=== PATIENT | male | born 1965 | race Hispanic/Latino ===

== ENCOUNTER 2018-07-14 06:54 | Emergency (ER) | payer MEDICARE, MEDICAID ==
[2018-07-14 07:32] LABS: #Basophils 0.1 thou/uL (0.0-0.2); #Eosinphils 0.2 thou/uL (0.0-0.7); #Lymphocytes 1.8 thou/uL (1.20-3.40); #Monocytes 0.6 thou/uL (0.11-0.59); #Neutrophils 2.5 thou/uL (1.40-6.50); %Basophils 1.3 % (0.0-1.0); %Eosinophils 3.5 % (0.0-10.0); %Lymphocytes 35.5 % (21.0-51.0); %Neutrophils 48.7 % (42.0-75.0); Hemoglobin 15.6 g/dL (14.0-18.0); Mean Corpuscular HGB CONC 34.1 g/dL (32.0-36.0); Mean Corpuscular Hemoglobin 30.3 pg (27.0-31.0); Mean Corpuscular Volume 88.8 fL (78.0-98.0); Mean Platelet Volume 7.1 fL (7.4-10.4); Platelet Count 239 thou/uL (130-400); RBC Distribution Width 12.6 % (11.5-14.5); Red Blood Cell (RBC) Count 5.13 mill/uL (4.70-6.10)
[2018-07-14 07:52] LABS: ALT (SGPT) 11 U/L (8-55); AST (SGOT) 16 U/L (5-34); Albumin 4.5 g/dL (3.5-5.0); Alkaline Phosphatase 113 U/L (40-150); Anion Gap 14 mmol/L (10-20); BUN (Urea Nitrogen) 16 mg/dL (8.9-20.6); Bilirubin, Total 0.7 mg/dL (0.2-1.2); Calc. Creatinine Clearance 0 mL/min (70-130); Calcium 9.3 mg/dL (7.8-10.44); Carbon Dioxide 24 mmol/L (22-29); Chloride 103 mmol/L (98-107); Estimated GFR-MDRD 75; Globulin 3.2 g/dL (2.4-3.5); Glucose 249 mg/dL (70-105); Potassium 3.9 mmol/L (3.5-5.1); Protein, Total 7.7 g/dL (6.0-8.3); Sodium 137 mmol/L (136-145)
[2018-07-14 07:57] LABS: CKMB 1.9 ng/mL (0-6.6)
[2018-07-14] MEDS ORDERED: Meclizine HCl 25 MG TAB ONE (08:05)
--- NOTE | 2018-07-14 08:06 | RAD ---
CHEST 1 VIEW: HISTORY: Dyspnea. COMPARISON: 12/30/14. FINDINGS: Cardiac silhouette is magnified by projection. Pulmonary vasculature is slightly engorged. Mediasti num midline with postoperative changes and aortic calcification. No lobar consolidation or evidence of pneumothorax. Lateral costophrenic angles are excluded from the image. IMPRESSION: Borderline pulmonary vascular congestion. POS: [facility]
--- NOTE | 2018-07-14 10:50 | CT ---
CT HEAD NONCONTRAST: Date: 07/14/18 HISTORY: Dizziness. Altered mental status. COMPARISON: 10/03/16. FINDINGS: There is no evidence of acute intracranial hemorrhage or infarct. Ventricles appear normal in size, s hape, and position. There is no mass effect or shift of midline structures. Visualized paranasal sinu ses remain well aerated. IMPRESSION: No acute intracranial abnormalities are demonstrated. POS: [facility]
[2018-07-14] MEDS ORDERED: Diazepam 5 MG TAB ONE (11:17)
--- NOTE | 2018-07-14 12:50 | MRI ---
MRI WITHOUT CONTRAST: HISTORY: Dizziness. Evaluate for possible stroke. COMPARISON: None. TECHNIQUE: MRI of the brain is performed without intravenous Gadolinium administration. Multisequential, multip lanar imaging is performed. FINDINGS: Calvarium has a normal T1 marrow signal intensity. Midline brain parenchymal structures are unremark able. Minimal T2 and FLAIR white matter hyperintensities are nonspecific. No parenchymal mass, mass effect, or midline shift. Basilar cisterns are patent. Brain volume is ag e appropriate. Cortical clark-white matter differentiation is preserved. No evidence of hydrocephalus. Central arterial flow voids are maintained. Absence of restricted diffusion. Mucous retention cyst in the left maxillary sinus. Mild bilateral ethmoidal mucosal thickening. Not e is made of a partially empty sella. IMPRESSION: 1. Absent restricted diffusion. No acute infarct. 2. Minimal white matter hyperintensities on the axial FLAIR sequence are nonspecific but may be due to chronic small-vessel ischemic changes. POS: [facility]
== END 2018-07-14 13:18 | disposition home or self-care (01) ==
LOC: ERS 06:54
DX: R42 Dizziness and giddiness (principal); E11.9 Type 2 diabetes mellitus without complications; E78.5 Hyperlipidemia, unspecified; I25.10 Atherosclerotic heart disease of native coronary artery without angina pectoris; I10 Essential (primary) hypertension; Z79.891 Long term (current) use of opiate analgesic; Z79.899 Other long term (current) drug therapy
CPT/HCPCS: 36415; 70450; 70551; 71045; 80053; 82553; 84484; 85025; 93005

== ENCOUNTER 2019-03-20 15:50 | Observation (INO) | payer MEDICARE, MEDICAID ==
[2019-03-20] MEDS ORDERED: Senokot S 8.6-50 MG TAB PO PRN (17:54)
[2019-03-20] MEDS ORDERED: Dextrose 5% in Water 1,000 ML IV PRN (18:08)
[2019-03-20] MEDS ORDERED: Dextrose 50% Abboject 50 ML SYRINGE SLOW IVP PRN (18:08)
[2019-03-20 19:18] VITALS: BMI 26.4
[2019-03-20 19:49] LABS: Troponin I 0.018 ng/mL (< 0.028)
[2019-03-20] MEDS: Acetaminophen 325 MG TAB PO PRN (21:17)
[2019-03-20] MEDS: Famotidine 20 MG TAB PO SCH (21:18)
[2019-03-20] MEDS: HumaLOG 300 UNITS/3 ML VIAL SC SCH (21:19)
[2019-03-20 22:41] LABS: Troponin I 0.017 ng/mL (< 0.028)
[2019-03-21] MEDS: Acetaminophen 325 MG TAB PO PRN (03:41)
[2019-03-21 05:35] LABS: #Basophils 0.1 thou/uL (0.0-0.2); #Eosinphils 0.2 thou/uL (0.0-0.7); #Lymphocytes 2.3 thou/uL (1.20-3.40); #Monocytes 0.9 thou/uL (0.11-0.59); #Neutrophils 4.1 thou/uL (1.40-6.50); %Basophils 1.5 % (0.0-1.0); %Eosinophils 2.5 % (0.0-10.0); %Lymphocytes 30.4 % (21.0-51.0); %Monocytes 11.7 % (0.0-10.0); %Neutrophils 53.8 % (42.0-75.0); Mean Corpuscular HGB CONC 32.4 g/dL (32.0-36.0); Mean Corpuscular Hemoglobin 29.1 pg (27.0-31.0); Mean Corpuscular Volume 89.8 fL (78.0-98.0); Mean Platelet Volume 7.4 fL (7.4-10.4); Platelet Count 231 thou/uL (130-400); RBC Distribution Width 12.9 % (11.5-14.5); Red Blood Cell (RBC) Count 5.15 mill/uL (4.70-6.10); White Blood Cell (WBC) Count 7.5 thou/uL (4.8-10.8)
[2019-03-21 05:58] LABS: ALT (SGPT) 8 U/L (8-55); AST (SGOT) 14 U/L (5-34); Alkaline Phosphatase 81 U/L (40-150); Anion Gap 13 mmol/L (10-20); BUN (Urea Nitrogen) 17 mg/dL (8.4-25.7); Bilirubin, Total 0.7 mg/dL (0.2-1.2); Calc. Creatinine Clearance 93 mL/min (70-130); Calcium 9.4 mg/dL (7.8-10.44); Carbon Dioxide 27 mmol/L (22-29); Cardiac Risk 4.4 (Less than 4.5); Chloride 100 mmol/L (98-107); Cholesterol 224 mg/dl (< 200 Desired); Estimated GFR-MDRD 68; Globulin 3.2 g/dL (2.4-3.5); Glucose 178 mg/dL (70-105); HDL Cholesterol 51 mg/dL (>60 Neg Risk); LDL Cholesterol, Calculated 135 mg/dL; Potassium 3.8 mmol/L (3.5-5.1); Protein, Total 7.2 g/dL (6.0-8.3); Sodium 136 mmol/L (136-145); Triglycerides 191 mg/dL (Less than 150)
[2019-03-21 06:13] LABS: Free T4 (Free Thyroxine) 0.86 ng/dL (0.70-1.48); Thyroid Stimulating Hormone 16.7808 uIU/mL (0.35-4.94)
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
[2019-03-21] MEDS ORDERED: Enoxaparin Sodium 40 MG/0.4 ML SYRINGE SC SCH (09:00)
--- NOTE | 2019-03-21 10:15 | NM ---
EXAM: CARDIAC SPECT HISTORY: Chest pain, coronary disease, status post CABG, hypertension, dyslipidemia, smoker TECHNIQUE: A myocardial perfusion scan was performed using the single isotope 1 day protocol with little hnetium 99m sestamibi. [11 mCi] was injected intravenously for the rest exam followed by 33 mCifor the stress study. Pharmacologic stress with Lexiscan was monitored and interpreted by Pedro Hurst, nurse practitioner. FINDINGS: There is homogeneous tracer distribution in the myocardial segments on the rest images. The stress images demonstrate a moderate-sized defect in the inferolateral wall. Gated SPECT LVEF: 61% Wall motion exam: Normal IMPRESSION: Completely reversible inferolateral wall ischemia.
[2019-03-21] MEDS: HumaLOG 300 UNITS/3 ML VIAL SC PRN ×2 (10:21→16:56)
[2019-03-21] MEDS: Aspirin 325 MG TAB PO SCH (10:21)
[2019-03-21] MEDS: Famotidine 20 MG TAB PO SCH ×2 (10:21→21:24)
[2019-03-21] MEDS ORDERED: Regadenoson 0.4 MG/5 ML SYRINGE ONE (16:05)
[2019-03-21] MEDS ORDERED: Communication Order-Pharmacy FS SCH (16:45)
[2019-03-21] MEDS ORDERED: Nebivolol HCl 2.5 MG TAB PO SCH (17:15)
[2019-03-21] MEDS ORDERED: Losartan 25 MG TAB PO SCH (17:15)
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
[2019-03-21] MEDS ORDERED: Diazepam 5 MG TAB PO PRN (20:48)
[2019-03-21] MEDS: HYDROcodone/Acetaminophen 10/325 mg Tablet PO PRN (21:23)
[2019-03-21] MEDS: HumaLOG 300 UNITS/3 ML VIAL SC SCH (21:24)
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
[2019-03-22] MEDS ORDERED: Bacteriostatic Water 30 ML VIAL FS PRN (03:43)
[2019-03-22] MEDS ORDERED: diphenhydrAMINE 25 MG CAP PO SCH (03:45)
[2019-03-22] MEDS ORDERED: methylPREDNISolone Sod Succ/PF 125 MG/2 ML VIAL IVP SCH (03:45)
[2019-03-22] MEDS: Famotidine 20 MG TAB PO SCH (06:16)
[2019-03-22] MEDS: Aspirin 325 MG TAB PO SCH (06:16)
[2019-03-22] MEDS: Acetaminophen 325 MG TAB PO PRN (06:18)
[2019-03-22] MEDS ORDERED: Losartan 25 MG TAB PO SCH (09:00)
[2019-03-22] MEDS ORDERED: Nebivolol HCl 5 MG TAB PO SCH (09:00)
[2019-03-22] MEDS ORDERED: diphenhydrAMINE 50 MG/ML VIAL ONE (09:03)
[2019-03-22] MEDS ORDERED: Midazolam HCl 2 mg/2 ml Vial ONE (10:39)
[2019-03-22] MEDS ORDERED: Ondansetron PF 4 MG/2 ML Vial ONE (10:39)
[2019-03-22] MEDS ORDERED: Iopamidol 370 76% 100 ML VIAL ONE (11:38)
[2019-03-22] MEDS ORDERED: Iopamidol 370 76% 50 ML VIAL FS ONE (11:38)
[2019-03-22] MEDS ORDERED: Sodium Chloride 0.9% 200 ML IV PRN (11:58)
[2019-03-22] MEDS ORDERED: Acetaminophen/Codeine 30-300mg Tablet PO PRN (11:58)
[2019-03-22] MEDS ORDERED: Nitroglycerin 0.4 MG TAB (25 Tab Bottle) SL PRN (11:58)
[2019-03-22] MEDS: HumaLOG 300 UNITS/3 ML VIAL SC PRN (12:49)
[2019-03-22] MEDS: HYDROcodone/Acetaminophen 10/325 mg Tablet PO PRN (14:33)
[2019-03-22 15:58] VITALS: BP 146/80; TEMP 97.5
--- NOTE | 2019-03-22 17:58 | PDOC.CTH ---
Cardiology Progress Note - Subjective Pt. seen and eval. by me. he underwent cardiac cath this AM . The ALEJANDRO to the LAD-Diag is patent with distal [place] vessel stenosis or ALEJANDRO stenosis. The distal RCA fills by L->R collaterals, The L-Circ. is patent. The Om's are subtotal. One OM fills by collaterals from the left. The SVG to the distal RCA and OM is occluded. No intervention is indicated. - Objective Vital Signs Temp Pulse Resp BP Pulse Ox 03/22/19 15:33 97.5 F L 71 16 146/80 H 93 L 03/22/19 11:58 98 03/22/19 11:50 97.8 F 67 16 159/72 H 98 Weight 189 lb 11.2 oz 03/21/19 03/22/19 03/23/19 06:59 06:59 06:59 Intake Total 575 960 Output Total 300 250 400 Balance 275 710 -400 - Physical Examination General/Neuro: alert & oriented x3 Neck: no JVD present Lungs: CTA Heart: RRR Abdomen: NT/ND, soft - Labs Result Diagrams: 03/21/19 04:52 03/21/19 04:52 Troponin/CKMB Troponin I 0.017 ng/mL (< 0.028) 03/20/19 22:08 - Assessment/Plan 1. CADS. s/p CABG 19 years ago. ( see above). Stable. Continue medical treatment. 2. DM 3. Dyslipidemia. Continue Repatha 4. HTN. stable. Pt. to f/u with me in a month in the office. venancio
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
== END 2019-03-22 18:21 | disposition home or self-care (01) ==
LOC: ERS 15:50 → 2SW 18:34
PROVIDERS: ADMIT Internal Medicine; ATTEND Internal Medicine
PROC: 4A023N7 Measurement of Cardiac Sampling and Pressure, Left Heart, Percutaneous Approach (ICD-10-PCS; principal; 2019-03-20)
PROC: B2001ZZ Plain Radiography of Single Coronary Artery using Low Osmolar Contrast (ICD-10-PCS; 2019-03-20)
DX: R07.2 Precordial pain (principal); R20.0 Anesthesia of skin; I25.10 Atherosclerotic heart disease of native coronary artery without angina pectoris; I10 Essential (primary) hypertension; E11.9 Type 2 diabetes mellitus without complications; E78.5 Hyperlipidemia, unspecified; E03.9 Hypothyroidism, unspecified; Z95.1 Presence of aortocoronary bypass graft; Z79.4 Long term (current) use of insulin; Z79.82 Long term (current) use of aspirin; Z79.899 Other long term (current) drug therapy; Z91.040 Latex allergy status; Z91.041 Radiographic dye allergy status
CPT/HCPCS: 78452; 80061; 82962 ×3; 84439; 84481; 84484; 93005; 93017; 93459; 93567; 94760; 96374; 97139; 99285; A9500; C1769; G0378 ×4; 36415; 36416; 80053; 84443; 85025; 99152; J1200; J1644; J1650; J2250; J2405; J2785; J2930; Q9967